=== PATIENT | male | born 1990 | race Caucasian/White ===

== ENCOUNTER 2019-11-22 | Emergency (ER) | payer OTHER ==
[~2019-11-22] MED LIST: AMOXICILLIN500 MG OR
[2019-11-22 09:59] LABS: HEMATOCRIT 46.3 % (39.0-50.0); HEMOGLOBIN 15.6 g/dl (14.0-18.0); IMMATURE GRANULOCYTES 0.4 % (0.0-5.0); MEAN CELL VOLUME 90.3 fL CALC (80.0-100.0); MEAN CORPUSCULAR HGB 30.4 pG CALC (26.0-32.0); MEAN CORPUSCULAR HGB CONC 33.7 g/L CALC (32.0-36.0); NEUT# 8.9 thou/uL (1.82-7.42); RED BLOOD COUNT 5.13 mill/uL (4.70-6.10); RED CELL DISTRI WIDTH 12.2 % (11.5-15.5)
[2019-11-22 10:20] LABS: ALBUMIN 4.9 g/dL (3.2-5.0); ALKALINE PHOSPHATASE 67 u/l (38-126); ANION GAP 16 (6-22 (CALC)); BILIRUBIN, TOTAL 0.7 mg/dL (0.0-1.4); BUN 13 mg/dL (9-20); BUN/CREATININE RATIO 13 (12-20 (CALC)); CARBON DIOXIDE 27 mmol/l (22-30); CHLORIDE 103 mmol/l (95-108); GFR > 60 ML/MIN (>=60 (CALC)); GFR FOR AFR.AMER. > 60 ML/MIN (>=60 (CALC)); LIPASE 35 u/l (23-300); POTASSIUM 4.1 mmol/l (3.5-5.1); SGOT/AST 22 u/l (17-59); SODIUM 141 mmol/l (137-146); TOTAL PROTEIN 8.3 g/dL (6.3-8.2)
[2019-11-22] MEDS ORDERED: ONDANSETRON4 MG PO ×2 (11:02)
[2019-11-22 11:15] LABS: URINE BILIRUBIN - DIPSTICK NEGATIVE (NEGATIVE); URINE BLOOD DIPSTICK NEGATIVE (NEGATIVE); URINE COLOR YELLOW; URINE GLUCOSE - DIPSTICK NEGATIVE (NEGATIVE); URINE KETONE NEGATIVE (NEGATIVE); URINE LEUK ESTERASE NEGATIVE (NEGATIVE); URINE NITRITE - DIPSTICK NEGATIVE (Negative); URINE PH 5.5 (4.5-8.0); URINE PROTEIN - DIPSTICK NEGATIVE (NEG-TRACE); URINE SPECIFIC GRAVITY <=1.005; URINE UROBILINOGEN - DIPSTICK 0.2 E.U./dL (0.2)
== END 2019-11-22 11:24 | disposition home or self-care (01) | DRG 392 ==
PROVIDERS: Family Medicine
DX: R11.2 Nausea with vomiting, unspecified (principal); F17.210 Nicotine dependence, cigarettes, uncomplicated

== ENCOUNTER 2020-05-16 19:15 | Emergency (ER) | payer OTHER ==
[~2020-05-16] VITALS: Ht 182.9 cm; Wt 100.0 kg
[~2020-05-16 19:15] MED LIST changes: +ONDANSETRON4 MG PO
[2020-05-16] MEDS ORDERED: CARAFATE1 GM PO (21:05)
[2020-05-16 21:20] VITALS: BP 140/84
--- NOTE | 2020-06-01 09:21 | NUR ---
Notified patient of positive Covid results. Patient denies SOB. Patient c/o no taste and no smell. Advised patient to quarantine per the [facility] instrutions and to return to ED with any difficulty breathing or other urgent needs.
== END 2020-05-16 21:25 | disposition home or self-care (01) | DRG 179 ==
LOC: ED 19:15
DX: U07.1 COVID-19 (principal); K21.9 Gastro-esophageal reflux disease without esophagitis; F17.210 Nicotine dependence, cigarettes, uncomplicated